=== PATIENT | female | born 1995 | race Caucasian/White ===

== ENCOUNTER → 2024-12-20 | Outpatient (CLI) | payer BC ==
[2024-12-20 14:16] VITALS: BP 124/68; PULSE 97; RESP 16; TEMP 98.2
--- NOTE | 2025-02-08 20:45 | P.MSEPDOC ---
Presenting Problems - Arrival Data Date of Arrival on Unit: 12/20/24 Time of Arrival on Unit: 13:56 Mode of Transport: Ambulatory - Complaint OB-Reason for Admission/Chief Complaint: Decreased Movement Comment: no movement since last night Medical History - Information : 1 Para: 0 Term: 0 : 0 Abortions: Spontaneous or Elective: 0 Number of Living Children: 0 - Gestational Age Gestational Age by PREET (wks/days): 33 Weeks and 5 Days - History Complications: GDM Review of Systems - Review of Systems Constitutional: No problems Breast: No problems ENT: No problems Cardiovascular: No problems Respiratory: No problems Gastrointestinal: No problems Genitourinary: No problems Musculoskeletal: No problems Neurological: No problems Skin: No problems Vital Signs - Temperature Temperature: 98.2 F Temperature Source: Temporal Artery Scan - Pulse Right Sitting Pulse Rate: 97 Pulse Assessment Method: Automatic Cuff - Respirations Respiratory Rate: 16 Oxygen Delivery Method: Room Air - Blood Pressure Right Arm Blood Pressure: 124/68 Blood Pressure Mean: 86 Blood Pressure Source: Automatic Cuff Medical Screen Scoring - Assessment - Baby A Baseline FHR: 135 Heart Rate - NICHD Category: Category I (Normal) Physician Notification - Physician Notified Physician Notified Date: 12/20/24 Physician Notified Time: 14:40 Physician: Bettie Breaux New Order Received: Yes Maternal Triage Index - Maternal Triage Index Presenting for scheduled procedure w/no complaint: No - Stat/Priority 1 Stat Priority 1: No - Urgent/Priority 2 Urgent Priority 2: Yes Provider Notified: Bettie Breaux Provider Notified Time: 14:40 Criteria Met for Priority 2: 33.5, decreased movement Disposition - Disposition OB Disposition: Triage, Discharge to home, Written follow up instructions reviewed Discharge Date: 12/20/24 Discharge Time: 14:43 I agree with the RN Medical Screening Exam: Yes Physician's MSE Comment: I have neither seen nor examined the patient Case reviewed; plan agreed upon as documented in EMR&OBIX.: Yes Diagnosis: DECREASED MOVEMENTS, THIRD TRIMESTER, FETUS 1
== END ==
LOC: FBPOP 13:56
PROVIDERS: ATTEND Obstetrics & Gynecology
DX: O36.8131 Decreased fetal movements, third trimester, fetus 1 (principal); Z3A.33 33 weeks gestation of pregnancy
CPT/HCPCS: 59025; 99213

== ENCOUNTER 2025-01-13 06:17 | Inpatient (IN) | payer BC ==
[2025-01-13] MEDS: LACTATED RINGERS 1,000 ML IV SCH (06:30)
[2025-01-13 06:31] LABS: Glucose,Whole Blood 97 mg/dL (70-110)
[2025-01-13] MEDS ORDERED: TRANEXAMIC 1,000 MG/100ML-NACL 1,000 MG in EMPTY BAG 1 BAG IV PRN (06:32)
[2025-01-13] MEDS ORDERED: CARBOPROST TROMETHAMINE 250 MCG/ML 1 ML AMP IM PRN (06:32)
[2025-01-13] MEDS ORDERED: OXYTOCIN 10 UNIT/ML 1 ML VIAL IM PRN (06:32)
[2025-01-13] MEDS ORDERED: METHYLERGONOVINE 0.2 MG/ML 1 ML AMP IM PRN (06:32)
[2025-01-13] MEDS ORDERED: miSOPROStoL 200 MCG TAB PO PRN (06:32)
[2025-01-13] MEDS ORDERED: LIDOCAINE 0.5% (PF) 5 MG/ML (50 ML SDV) SQ PRN (06:32)
[2025-01-13] MEDS ORDERED: miSOPROStoL 200 MCG TAB RECTAL PRN (06:32)
[2025-01-13] MEDS ORDERED: TERBUTALINE 1 MG/ML VIAL SQ PRN (06:32)
[2025-01-13 06:41] LABS: Basophils # (A) 0.02 10*3/uL (0.00-0.10); Basophils % (A) 0.3 %; HCT 30.5 % (37.2-46.3); HGB 9.5 g/dL (12.0-15.0); Lymphocytes # (A) 2.02 10*3/uL (0.90-5.00); Lymphocytes % (A) 28.4 %; MCH 25.6 pg (27.0-32.0); MCHC 31.1 g/dL (32.0-37.0); MCV 82.2 fL (80.0-97.0); Mean Platelet Volume 11.6 fL (9.5-12.2); Monocytes # (A) 0.45 10*3/uL (0.20-1.00); Monocytes % (A) 6.3 %; Neutrophils # (A) 4.58 10*3/uL (1.80-7.70); Neutrophils % (A) 64.4 %; Platelet Count 278 10*3/uL (140-440); RBC 3.71 10*6/uL (4.10-5.20); RDW 15.6 % (11.5-14.5); WBC 7.11 10*3/uL (4.50-10.00)
[2025-01-13] MEDS: OXYTOCIN 30 UNITS/500 ML NS 30 UNIT in SALINE 1 500ML.BAG IV SCH (06:43)
[2025-01-13] MEDS ORDERED: OXYTOCIN 30 UNITS/500 ML NS 30 UNIT in SALINE 1 500ML.BAG IV SCH (06:45)
--- NOTE | 2025-01-13 08:34 | P.HPOB ---
History of Present Illness H&P Date: 01/13/25 Chief Complaint: medical induction of labor Ms. Oneal is a 29 year old at 37 weeks and 1 day with EDC of 02/02/2025 by 10 week who presents for medical induction of labor diet-controlled gestational diabetes and severe IUGR with EFW in 5%ile and AC in 2%ile. The has also been complicated by maternal anemia for which she received IV iron infusions. The patient also has a history of gastric sleeve, mild intermittent asthma, hypertension (resolved with weight loss), and diabetes (resolved with weight loss). work-up: blood type O positive, antibody screen negative, rubella immune, VDRL non-reactive, HBsAg negative, HIV negative, gonorrhea negative, chlamydia ngatieb, 1 and 3 hour GTT abnormal, GBS negative, s/p TDap Past Medical History Past Medical History: No Reported History History of Any Multi-Drug Resistant Organisms: None Reported Past Surgical History: Adenoidectomy, Bariatric Surgery, Tonsillectomy Past Anesthesia/Blood Transfusion Reactions: No Reported Reaction Past Psychological History: Depression Smoking Status: Never smoker Past Alcohol Use History: None Reported Past Drug Use History: None Reported Medications and Allergies Home Medications Medication Instructions Recorded Confirmed Type Vit No.179/Iron/Folic 1 tab PO DAILY 08/22/24 12/20/24 History [ Tablet] Venlafaxine HCl [Effexor] 225 tab PO DAILY 08/22/24 12/20/24 History Allergies Allergy/AdvReac Type Severity Reaction Status Date / Time No Known Allergies Allergy Verified 12/20/24 14:05 Exam Vital Signs Temp Pulse Resp BP Pulse Ox 01/13/25 06:28 97.2 F L 99 15 113/69 98 Intake and Output 01/12/25 01/13/25 01/13/25 22:59 06:59 14:59 Other: Weight 99.337 kg Focused physical exam is performed. This is a healthy-appearing in no apparent distress. Breathing is non-labored. Abdomen is gravid and non-tender. Cervical exam is 2/80/-2. AROM is undertaken with clear fluid noted. Extremities non-tender and non-edematous. heart tones are Category I and tocometer is graphing contractions every 2-4 minutes. Results Result Diagrams: 01/13/25 06:30 Abnormal Lab Results - Last 24 Hours (Table) 01/13/25 Range/Units 06:30 RBC 3.71 L (4.10-5.20) 10*6/uL Hgb 9.5 L (12.0-15.0) g/dL Hct 30.5 L (37.2-46.3) % MCH 25.6 L (27.0-32.0) pg MCHC 31.1 L (32.0-37.0) g/dL Eosinophils # 0.00 L (0.04-0.35) 10*3/uL Assessment and Plan Assessment: 29 year old at 37 weeks and 1 day being induced for GDMA1 and severe IUGR Plan: Admit, clear liduid diet, pitocin per protocol, epidural prn, continuous efm and tocometer.
[2025-01-13] MEDS ORDERED: ROPIVACAINE 5 MG/ML 30 ML VIAL ONE (12:48)
[2025-01-13] MEDS ORDERED: fentaNYL (PF) 50 MCG/ML 5 ML AMP ONE (12:48)
[2025-01-13] MEDS ORDERED: SODIUM CHLORIDE 0.9% 250 ML BAG ONE (12:48)
[2025-01-13] MEDS ORDERED: diphenhydrAMINE 50 MG CAP PO PRN (17:02)
[2025-01-13] MEDS ORDERED: diphenhydrAMINE 50 MG/ML 1 ML VIAL IVP PRN ×2 (17:02)
[2025-01-13] MEDS ORDERED: LANOLIN CREAM 1 GM TUBE TOPICAL PRN (17:02)
[2025-01-13] MEDS ORDERED: ZOLPIDEM 5 MG TAB PO PRN (17:02)
[2025-01-13] MEDS ORDERED: diphenhydrAMINE 25 MG CAP PO PRN (17:02)
[2025-01-13] MEDS ORDERED: SIMETHICONE 80 MG CHEWABLE PO PRN (17:02)
[2025-01-13] MEDS ORDERED: BENZOCAINE/MENTHOL SPRAY 1 GM/SPRAY AEROSOL TOPICAL PRN (17:02)
[2025-01-13] MEDS ORDERED: HYDROCORTISONE 2.5% RECTAL CREAM 30 GM TUBE RECTAL PRN (17:02)
--- NOTE | 2025-01-13 17:02 | P.PROBDLV ---
Vaginal Delivery Note - . Vaginal Delivery Note: DATE OF SERVICE: 01/13/2025 PROCEDURE: Normal Vaginal Delivery ATTENDING: Dr. Bettie Breaux MD ESTIMATED BLOOD LOSS: 200 mL FINDINGS: VMI, Apgars 8/9. Weight 5 pounds and 2 ounces (2345 grams) PROCEDURE: Ms. Oneal is a 29 year old at 37 weeks and 1 day presenting to labor and delivery for medical induction of labor for severe IUGR and GDMA1. For further details, please review the admitting H&P. Pitocin was titrated per protocol. AROM was undertaken at 823 revealing clear amniotic fluid. The patient received epidural anesthesia per her request. The patient was completely dilated at 1552. She had excellent pushing efforts with category I FHTs. A viable male was delivered at 1634. The was placed on the maternal abdomen and bulb suctioned. The infant was noted to be spontaneously crying. Cord was clamped and cut after a 60-second delay. The infant was handed off to the pediatric team. Placenta was delivered whole with gentle cord traction at 1637. Oxytocin was started to facilitate uterine tone. Uterine fundus was found to be firm and below the umbilicus upon fundal massage. Thorough examination of the cervix, vagina, periurethral area, and perineum revealed a second degree pernieal laceration. The perineum was infiltrated with lidocaine and repaired with 2-0 Vicryl in the usual fashion. The patient is stable and allowed to begin the bonding process.
[2025-01-13] MEDS: IBUPROFEN 800 MG TAB PO SCH (17:36)
[2025-01-13] MEDS: SENNOSIDES-DOCUSATE SODIUM 1 EACH TAB PO SCH (17:37)
[2025-01-13] MEDS: ACETAMINOPHEN TAB 500 MG TAB PO SCH (20:51)
[2025-01-14 06:08] LABS: Basophils # (A) 0.01 10*3/uL (0.00-0.10); Basophils % (A) 0.1 %; HCT 27.2 % (37.2-46.3); HGB 8.2 g/dL (12.0-15.0); Lymphocytes # (A) 2.17 10*3/uL (0.90-5.00); Lymphocytes % (A) 22.8 %; MCH 25.5 pg (27.0-32.0); MCHC 30.1 g/dL (32.0-37.0); MCV 84.5 fL (80.0-97.0); Mean Platelet Volume 10.8 fL (9.5-12.2); Monocytes # (A) 0.71 10*3/uL (0.20-1.00); Monocytes % (A) 7.5 %; Neutrophils # (A) 6.59 10*3/uL (1.80-7.70); Neutrophils % (A) 69.1 %; Platelet Count 217 10*3/uL (140-440); RBC 3.22 10*6/uL (4.10-5.20); RDW 15.6 % (11.5-14.5); WBC 9.53 10*3/uL (4.50-10.00)
--- NOTE | 2025-01-14 12:46 | P.PNOBGVD ---
Subjective - Subjective Principal diagnosis: s/p vaginal delivery Interval history: Patient gone during rounds to the cafeteria. Patient doing well per her RN, no concerns. in the nursery for suspected pneumonia with plan for 7 days of IV antibiotics. : other (in nursery) Objective - Latest Vital Signs Latest vital signs: Vital Signs Temp Pulse Resp BP Pulse Ox 01/14/25 11:59 87 18 126/84 99 01/14/25 08:02 92 16 138/83 99 01/14/25 04:00 72 16 125/80 97 01/13/25 20:45 86 16 113/79 98 01/13/25 18:45 75 16 119/61 01/13/25 18:30 82 16 116/58 01/13/25 18:15 81 16 126/57 01/13/25 18:00 80 16 107/66 01/13/25 17:45 85 16 119/62 01/13/25 17:30 72 16 122/80 01/13/25 17:15 78 16 128/61 01/13/25 17:00 85 16 132/63 01/13/25 16:45 97.4 F L 86 17 135/63 Intake and Output 01/13/25 01/14/25 01/14/25 22:59 06:59 14:59 Output Total 220 Balance -220 Output: Urine 50 Output, Quantitative 170 Blood Loss Other: # Voids 1 2 2 - Labs Labs: Abnormal Lab Results - Last 24 Hours (Table) 01/14/25 Range/Units 05:58 RBC 3.22 L (4.10-5.20) 10*6/uL Hgb 8.2 L (12.0-15.0) g/dL Hct 27.2 L (37.2-46.3) % MCH 25.5 L (27.0-32.0) pg MCHC 30.1 L (32.0-37.0) g/dL Immature Gran # 0.05 H (0.00-0.04) 10*3/uL Eosinophils # 0.00 L (0.04-0.35) 10*3/uL Assessment and Plan Assessment: 29 year old now PPD#1 s/p after IOL at 37 weeks for severe IUGR, GDM Plan: Anticipate discharge home tomorrow, given that the infant will remain admitted.
[2025-01-15 08:21] VITALS: PULSE 78
--- NOTE | 2025-01-15 08:44 | P.DS ---
Providers Date of admission: 01/13/25 06:17 Expected date of discharge: 01/15/25 Attending physician: Bettie Breaux MD Primary care physician: Stated None Hospital Course: Ms. Oneal is a 29 year old now PPD#2 s/p after induction of labor at 37 weeks for severe IUGR and GDM. Delivery was uncomplicated. The patient is doing well this morning and had no acute events overnight. She has no complaints this morning. She reports minimal lochia, passing flatus, voiding without difficulty, ambulating, and eating/drinking without nausea or vomiting. is in the nursery for IV antibiotics for pneumonia. She denies chest pain, shortness of breathing, fevers, or chills overnight. She denies pain or swelling in the legs. restrictions are reviewed with the patient including pelvic rest for 6 weeks. The patient is encouraged to call the office if she experiences any heavy bleeding, foul-smelling discharge, breast complaints, or any if she has any other concerns. She will follow up in the office in 6 weeks for exam. All questions are answered. Patient Condition at Discharge: Good Plan - Discharge Summary New Discharge Prescriptions: No Action Venlafaxine HCl [Effexor] 225 tab PO DAILY Vit No.179/Iron/Folic [ Tablet] 1 tab PO DAILY Discharge Medication List Vit No.179/Iron/Folic [ Tablet] 1 tab PO DAILY 08/22/24 [History] Venlafaxine HCl [Effexor] 225 tab PO DAILY 08/22/24 [History] Follow up Appointment(s)/Referral(s): Bettie Breaux MD [STAFF PHYSICIAN] - 02/26/25 1:15 pm Activity/Diet/Wound Care/Special Instructions: Instructions 1. Do not begin any exercise program for 3 weeks. 2. Do not resume sexual relations for 6 weeks or longer if uncomfortable. 3. You may take tub baths or showers at any time. 4. You may use tampons if desired after 6 weeks. 5. Keep any areas repaired with stitches clean and dry. 6. If you are not nursing, wear a good fitting, supportive bra during the day and limit fluid intake for at least 1 week to prevent breast engorgement. 7. Call the office, , within the next week to make appointment for your 6 week checkup if it has not already been made. 8. Report any of the following occurrences to the doctor promptly: a. Heavy, excessive bleeding b. Chills, fever c. Burning or frequency of urination d. Pain or redness and breasts if nursing e. Increasing pain or swelling of vulva (stitches). In addition to the above instructions, the following additional should be followed: 1. No heavy lifting or straining (exercising) until after 6 week checkup. 2. Keep abdominal incision clean and dry: You may wear a dressing if more comfortable. 3. Make office appointment for 2 weeks after delivery date. Discharge Disposition: HOME SELF-CARE
[2025-01-15 16:09] VITALS: BP 134/85; RESP 16; TEMP 98.5
== END 2025-01-15 18:54 | disposition home or self-care (01) | DRG 807 ==
LOC: 4FBP 06:17
PROVIDERS: ADMIT Obstetrics & Gynecology; ATTEND Obstetrics & Gynecology
PROC: 0KQM0ZZ Repair Perineum Muscle, Open Approach (ICD-10-PCS; principal; 2025-01-13)
PROC: 3E033VJ Introduction of Other Hormone into Peripheral Vein, Percutaneous Approach (ICD-10-PCS; principal; 2025-01-13)
PROC: 10907ZC Drainage of Amniotic Fluid, Therapeutic from Products of Conception, Via Natural or Artificial Opening (ICD-10-PCS; principal; 2025-01-13)
PROC: 10E0XZZ Delivery of Products of Conception, External Approach (ICD-10-PCS; principal; 2025-01-13)
DX: O24.420 Gestational diabetes mellitus in childbirth, diet controlled (principal); O36.5930 Maternal care for other known or suspected poor fetal growth, third trimester, not applicable or unspecified; D64.9 Anemia, unspecified; O99.02 Anemia complicating childbirth; O99.52 Diseases of the respiratory system complicating childbirth; O99.344 Other mental disorders complicating childbirth; O99.844 Bariatric surgery status complicating childbirth; O70.1 Second degree perineal laceration during delivery; J45.909 Unspecified asthma, uncomplicated; F32.A Depression, unspecified; Z79.899 Other long term (current) drug therapy; Z3A.37 37 weeks gestation of pregnancy; Z37.0 Single live birth
CPT/HCPCS: 85025; 86850; 86900; 86901